=== PATIENT | female | born 1990 | race Caucasian/White ===

== ENCOUNTER 2016-08-29 01:03 | Emergency (ER) | payer SELFPAY ==
[2016-08-29 01:16] VITALS: BP 124/99; BMI 28.8
[2016-08-29 01:39] LABS: BASOPHILS # (AUTO) 0.1 X10^3/uL (0.0-0.1); BASOPHILS % (AUTO) 0.6 % (0.2-1.0); HEMATOCRIT 40.2 % (36.0-47.0); HEMOGLOBIN 13.8 g/dL (12.0-16.0); LYMPHOCYTES # (AUTO) 2.3 X10^3/uL (1.3-2.9); LYMPHOCYTES % (AUTO) 19.5 % (21.0-51.0); MEAN CORPUSCULAR HEMOGLOBIN 29.8 pg (27.0-34.0); MEAN CORPUSCULAR HGB CONC 34.2 g/dL (33.0-35.0); MEAN CORPUSCULAR VOLUME 87.1 fL (80.0-100.0); MEAN PLATELET VOLUME 8.3 fL (7.4-11.0); MONOCYTES # (AUTO) 1.1 x10^3/uL (0.3-0.8); MONOCYTES % (AUTO) 8.9 % (0.0-13.0); NEUTROPHILS # (AUTO) 8.5 x10^3/uL (2.2-4.8); PLATELET COUNT 243 X10^3/uL (150.0-450.0); RED BLOOD COUNT 4.62 X10^6/uL (3.5-5.4)
[2016-08-29 01:43] LABS: BILIRUBIN,URINE 2+ (NEGATIVE); BLOOD/HEMOGLOBIN,URINE 1+ (NEGATIVE); GLUCOSE, URINE NEGATIVE (NEGATIVE); KETONES,URINE 1+ (NEGATIVE); LEUKOCYTE ESTERASE ,URINE 1+ (NEGATIVE); NITRITES,URINE NEGATIVE (NEGATIVE); PROTEIN,URINE 2+ (NEGATIVE); UROBILINOGEN,URINE 2+ (NORMAL)
--- NOTE | 2016-08-29 01:49 | DR.GENAD ---
HPI - PCP Primary Care Physician: NFD - Complaint/Symptoms Chief Complaint Doctors Comments: I agree with statement. Patient is non homocidal and non suicidal Chief Complaint:: PT STATES" YEA I DID SOME DRUGS BUT I DON'T NEED ANY HELP I DON'T WANT TOO HURT MYSELF OR ANYONE ELSE. PEOPLE JUST NEED TOO LEAVE ME ALONE I KEEP TOO MYSELF AND WALK THE STREETS WHATS WRONG WITH THAT I SMOKED METH TONIGHT " - Source History Provided: Patient - Mode of Arrival Mode of Arrival: EMS - Timing Onset of Chief Complaint: 08/29/16 PMH - PMH Past Medical History: Yes Past Medical History: Anemia, Schizophrenia Past Medical History Comment: DRUG USE Past Surgical History: Yes Surgical History: - Family History History of Family Medical Conditions: Yes Family Medical History: Diabetes Mellitus, Hypertension - Social History Have you used tobacco products in the last 12 months: Yes Type of Tobacco Use: Cigarettes Alcohol Use: Occasionally Do you use any recreational Drugs:: Yes (METH AND CRACK) Lives With: Other Lives Where: Homeless - infectious screening In the last 2 months have you had wt loss of >10#?: NO Have you had fever, night sweats or hemotysis?: No Have you traveled outside the country in the last 6 months?: No Isolation: Standard ROS - Review of Systems Eyes: No Symptoms Reported ENTM: No Symptoms Reported Respiratoy: No Symptoms Reported Cardiovascular: No Symptoms Reported Gastrointestinal/Abdominal: No Symptoms Reported Genitourinary: No Symptoms Reported Neurological: No Symptoms Reported Musculoskeletal: No Symptoms Reported Integumentary: No Symptoms Reported Hematologic/Lymphatic: No Symptoms Reported Endocrine: No Symptoms Reported Psychiatric: No Symptoms Reported All Other Systems: Reviewed and Negative PE - Vital Signs Vitals: Temperature 98.8 F Pulse Rate 119 Respiratory Rate 22 Blood Pressure [Left Arm] 130/72 Blood Pressure 124/99 O2 Sat by Pulse Oximetry 100 - General Limitations: No Limitations General Appearance: Alert, In No Apparent Distress - Head Head Exam: Normal Inspection, Atraumatic - Eyes Eye exam: Normal Appearance, PERRL - ENT ENT Exam: Normal Exam External Ear Exam: Normal External Inspection TM/Canal Exam: Bilateral Normal Nose Exam: Normal Nose Exam Mouth Exam: Normal Inspection Throat Exam: Normal Inspection - Neck Neck Exam: Normal Inspection - Chest Chest Inspection: Normal Inspection - Respiratory Respiratory Exam: Normal Lung Sounds Bilat Respiratory Exam: Bilateral Clear to Auscultation - Cardiovascular Cardiovascular Exam: Tachycardia - Abdominal Exam Abdominal Exam: Normal Inspection Abdominal Tenderness: negative: RUQ, RLQ, LUQ, LLQ, Epigastrium, Suprapubic, Diffuse, Mild, Moderate, Severe, Other - Extremities Extremities Exam: Normal Inspection - Back Back Exam: Normal Inspection - Neurologic Neurological Exam: Alert, Oriented X3, CN II-XII Intact - Psychiatric Psychiatric Exam: Normal Affect - Skin Skin Exam: Warm, Dry, Intact Course - Reevaluation 1st: Improved ROR - Labs Reviewed Laboratory Results Reviewed?: Yes (urine: meth,cocaine, THC) Result Diagrams: 08/29/16 01:30 08/29/16 01:30 Laboratory: WBC 12.0 X10^3/uL (3.6-10.0) H 08/29/16 01:30 RBC 4.62 X10^6/uL (3.5-5.4) 08/29/16 01:30 Hgb 13.8 g/dL (12.0-16.0) 08/29/16 01:30 Hct 40.2 % (36.0-47.0) 08/29/16 01:30 MCV 87.1 fL (80.0-100.0) 08/29/16 01:30 MCH 29.8 pg (27.0-34.0) 08/29/16 01:30 MCHC 34.2 g/dL (33.0-35.0) 08/29/16 01:30 RDW 13.0 % (11.6-16.5) 08/29/16 01:30 Plt Count 243 X10^3/uL (150.0-450.0) 08/29/16 01:30 MPV 8.3 fL (7.4-11.0) 08/29/16 01:30 Neut % 71.0 % (42.0-75.0) 08/29/16 01:30 Lymph % 19.5 % (21.0-51.0) L 08/29/16 01:30 Collin % 8.9 % (0.0-13.0) 08/29/16 01:30 Eos % 0.0 % (0.9-2.9) L 08/29/16 01:30 Baso % 0.6 % (0.2-1.0) 08/29/16 01:30 Neut # 8.5 x10^3/uL (2.2-4.8) H 08/29/16 01:30 Lymph # 2.3 X10^3/uL (1.3-2.9) 08/29/16 01:30 Collin # 1.1 x10^3/uL (0.3-0.8) H 08/29/16 01:30 Eos # 0.0 x10^3/uL (0.0-0.2) 08/29/16 01:30 Baso # 0.1 X10^3/uL (0.0-0.1) 08/29/16 01:30 Absolute Nucleated RBC 0.0 /100WBC 08/29/16 01:30 Sodium 141 mmol/L (136-145) 08/29/16 01:30 Corrected Sodium 142 mmol/L (136-145) 08/29/16 01:30 Potassium 3.6 mmol/L (3.5-5.1) 08/29/16 01:30 Chloride 102 mmol/L (98-107) 08/29/16 01:30 Carbon Dioxide 27.3 mmol/L (21-32) 08/29/16 01:30 BUN 24 mg/dL (7-18) H 08/29/16 01:30 Creatinine 1.88 mg/dL (0.55-1.02) H 08/29/16 01:30 Est GFR (MDRD) Af Amer 42 (>60) L 08/29/16 01:30 Est GFR (MDRD) Non-Af 35 (>60) L 08/29/16 01:30 Glucose 139 mg/dL (65-99) H 08/29/16 01:30 Calcium 8.9 mg/dL (8.5-10.1) 08/29/16 01:30 Corrected Calcium TNP 08/29/16 01:30 Total Bilirubin 1.10 mg/dL (0.2-1.0) H 08/29/16 01:30 AST 52 Units/L (15-37) H 08/29/16 01:30 ALT 44 Units/L (12-78) 08/29/16 01:30 Alkaline Phosphatase 82 Units/L (46-116) 08/29/16 01:30 Total Protein 8.5 g/dL (6.4-8.2) H 08/29/16 01:30 Albumin 4.2 g/dL (3.4-5.0) 08/29/16 01:30 Globulin 4.3 g/dL (2.5-4.5) 08/29/16 01:30 Albumin/Globulin Ratio 1.0 Ratio (1.1-2.1) L 08/29/16 01:30 HCG, Qual Negative <10 mIU/mL 08/29/16 01:30 Specimen Type Clean catch urine 08/29/16 01:22 Urine Color Yellow (YELLOW) 08/29/16 01: Urine Appearance Cloudy (CLEAR) 08/29/16 01: Urine pH 5.0 (5.0 - 8.0) 08/29/16 01:22 Ur Specific [place] 1.030 (1.000-1.030) 08/29/16 01:22 Urine Protein 2+ (NEGATIVE) 08/29/16 01:22 Urine Glucose (UA) Negative (NEGATIVE) 08/29/16 01: Urine Ketones 1+ (NEGATIVE) 08/29/16 01:22 Urine Occult Blood 1+ (NEGATIVE) 08/29/16 01: Urine Nitrite Negative (NEGATIVE) 08/29/16 01: Urine Bilirubin 2+ (NEGATIVE) 08/29/16 01:22 Urine Urobilinogen 2+ (NORMAL) 08/29/16 01:22 Ur Leukocyte Esterase 1+ (NEGATIVE) 08/29/16 01:22 Urine RBC 3-5 /HPF (NEGATIVE) 08/29/16 01:22 Urine WBC 8-10 /HPF (NEGATIVE) 08/29/16 01:22 Ur Squamous Epith Cells Few /HPF (NEGATIVE) 08/29/16 01:22 Calcium Oxalate Crystal Moderate /HPF (NEGATIVE) 08/29/16 01:22 Urine Bacteria 2+ /HPF (NEGATIVE) 08/29/16 01:22 Hyaline Casts Moderate /LPF (NEGATIVE) 08/29/16 01:22 Urine Mucus Moderate /HPF (NEGATIVE) 08/29/16 01:22 Ur Culture Indicated? Yes/culture set up 08/29/16 01:22 Salicylates < 2.8 mg/dL (2.8-20) L 08/29/16 01:30 Urine Opiates Screen Negative (NEG=<300) 08/29/16 01:22 Urine Methadone Screen Negative (NEG=<300) 08/29/16 01:22 Acetaminophen 0.0 ug/mL (10-30) L 08/29/16 01:30 Ur Barbiturates Screen Negative (NEG=<200) 08/29/16 01:22 Ur Phencyclidine Scrn Negative (NEG=<25) 08/29/16 01:22 Ur Amphetamines Screen Positive (NEG=<1000) A 08/29/16 01:22 U Benzodiazepines Scrn Negative (NEG=<200) 08/29/16 01:22 Urine Cocaine Screen Positive (NEG=<300) A 08/29/16 01:22 U Marijuana (THC) Screen Positive (NEG=<50) A 08/29/16 01:22 Ethyl Alcohol mg/dL < 3 mg/dL (0-19.9) 08/29/16 01:30 - Diagnosis Discharge Problem: Substance abuse or dependence, Illicit drug use - Discharge Plan Condition: Stable - Follow ups/Referrals Follow ups/Referrals: NFD,None [Primary Care Provider] - 3 days - Instructions Instructions: Stimulant Use Disorder-Amphetamines, Substance Use Disorder, Finding Treatment for Addiction, Stimulant Use Disorder-Methamphetamines
[2016-08-29 01:50] LABS: ALANINE AMINOTRANSFERASE 44 Units/L (12-78); ALBUMIN 4.2 g/dL (3.4-5.0); ALKALINE PHOSPHATASE 82 Units/L (46-116); ASPARTATE AMINO TRANSFERASE 52 Units/L (15-37); BLOOD ALCOHOL < 3 mg/dL (0-19.9); BLOOD UREA NITROGEN 24 mg/dL (7-18); CALCIUM 8.9 mg/dL (8.5-10.1); CARBON DIOXIDE 27.3 mmol/L (21-32); CHLORIDE 102 mmol/L (98-107); COR NA(FOR HYPERGLY) 142 mmol/L (136-145); CREATININE 1.88 mg/dL (0.55-1.02); GLUCOSE 139 mg/dL (65-99); SODIUM 141 mmol/L (136-145); TOTAL PROTEIN 8.5 g/dL (6.4-8.2); eGFR BLACK RACES 42 (>60); eGFR NON BLACK RACES 35 (>60)
[2016-08-29 01:50] LABS: APPEARANCE,URINE CLOUDY (CLEAR); BACTERIA,URINE 2+ /HPF (NEGATIVE); CALCIUM OXALATE CRYSTALS,UR MODERATE /HPF (NEGATIVE); COLOR,URINE YELLOW (YELLOW); HYALINE CASTS, URINE MODERATE /LPF (NEGATIVE); MUCUS,URINE MODERATE /HPF (NEGATIVE); SQUAMOUS EPITHELIAL CELL,UR FEW /HPF (NEGATIVE)
[2016-08-29 01:52] LABS: SERUM PREGNANCY TEST, QUAL NEGATIVE <10 mIU/mL
[2016-08-29 01:53] LABS: SALICYLATE < 2.8 mg/dL (2.8-20)
== END 2016-08-29 06:28 | disposition home or self-care (01) ==
LOC: ER 01:03
DX: F15.10 Other stimulant abuse, uncomplicated (principal); F12.90 Cannabis use, unspecified, uncomplicated
CPT/HCPCS: 36415; 80053; 80307; 80320; 81001; 84703; 85025; 87086; 93005; 93010; 99281; 99283; G0434; G6038; G6039; G6040

== ENCOUNTER 2018-08-17 06:00 | Inpatient (IN) ==
[2018-08-17] MEDS ORDERED: ANCEF 1 GRAM IV PREMIX* 1 G/50 ML BAG IV ONE (06:30)
[2018-08-17] MEDS ORDERED: LR 1000 ML IV 1,000 ML ONE ×3 (06:31→08:03)
[2018-08-17] MEDS ORDERED: D5 1/2 NS 1000 ML 1,000 ML IV SCH (06:58)
[2018-08-17] MEDS ORDERED: ANCEF VIAL 1 GRAM IVP ONE (06:58)
[2018-08-17] MEDS ORDERED: FENTANYL INJ 100 mcg ONE (07:24)
[2018-08-17] MEDS ORDERED: DILAUDID INJ ONE (07:24)
[2018-08-17] MEDS ORDERED: MARCAINE SPINAL ONE (07:25)
[2018-08-17] MEDS ORDERED: MARCAINE 0.25% INJ ONE (07:25)
[2018-08-17] MEDS ORDERED: D5 1/2 NS 1L W PITOCIN 20 UNITS/L 20 UNITS/1,000 ML BAG IV ONE (07:37)
[2018-08-17 08:38] LABS: BILIRUBIN,URINE NEGATIVE (NEGATIVE); BLOOD/HEMOGLOBIN,URINE NEGATIVE (NEGATIVE); GLUCOSE, URINE NEGATIVE (NEGATIVE); KETONES,URINE NEGATIVE (NEGATIVE); LEUKOCYTE ESTERASE ,URINE NEGATIVE (NEGATIVE); NITRITES,URINE NEGATIVE (NEGATIVE); PROTEIN,URINE NEGATIVE (NEGATIVE); UROBILINOGEN,URINE NORMAL (NORMAL)
[2018-08-17 08:45] LABS: APPEARANCE,URINE CLEAR (CLEAR); COLOR,URINE YELLOW (YELLOW)
[2018-08-17] MEDS ORDERED: DIPRIVAN VIAL 20 ML ONE (08:49)
[2018-08-17] MEDS ORDERED: VERSED ONE (09:08)
[2018-08-17] MEDS ORDERED: BENADRYL INJ 50 MG VIAL IVP PRN (09:11)
[2018-08-17] MEDS ORDERED: PHENERGAN INJ 25 MG IM PRN (09:11)
[2018-08-17] MEDS ORDERED: REGLAN INJ 10 MG VIAL IVP PRN ×2 (09:11→09:37)
[2018-08-17] MEDS ORDERED: DILAUDID INJ IVP PRN (09:11)
[2018-08-17] MEDS ORDERED: ZOFRAN INJ 4 MG VIAL IVP PRN ×2 (09:11→09:37)
[2018-08-17] MEDS ORDERED: HYPERRHO S/D (or RHOGAM) IM PRN (09:37)
[2018-08-17] MEDS ORDERED: NARCAN INJ IVP PRN (09:37)
[2018-08-17] MEDS ORDERED: PERCOCET TAB 5/325 MG PO PRN (09:37)
[2018-08-17] MEDS ORDERED: MYLICON TAB 80 MG CHEW PO PRN (09:37)
[2018-08-17] MEDS ORDERED: ADACEL or BOOSTRIX TDaP VACCINE IM ONE ×2 (09:37→14:31)
[2018-08-17] MEDS ORDERED: D5 1/2 NS 1000 ML 1,000 ML with PITOCIN 20 UNITS IV SCH ×2 (10:00)
[2018-08-17] MEDS: XANAX PO PRN ×2 (10:31→22:41)
[2018-08-17] MEDS: BENADRYL INJ 50 MG VIAL IVP PRN ×2 (10:31→14:52)
[2018-08-17] MEDS: TORADOL 30 MG VIAL IVP PRN ×2 (12:56→22:40)
[2018-08-17] MEDS ORDERED: PITOCIN ONE (15:16)
[2018-08-17] MEDS ORDERED: EPHEDRINE SULFATE INJ ONE (15:16)
[2018-08-17] MEDS ORDERED: XYLOCAINE 1 % (PLAIN) ONE (15:16)
[2018-08-17] MEDS ORDERED: DIPRIVAN VIAL ONE (15:16)
[2018-08-17] MEDS: ZANTAC PO SCH (20:49)
[2018-08-18 05:17] LABS: HEMATOCRIT 27.9 % (36.0-47.0)
[2018-08-18 05:30] LABS: HEMOGLOBIN 9.6 g/dL (12.0-16.0)
[2018-08-18] MEDS: COLACE CAP 100 MG PO SCH ×2 (09:12→20:40)
[2018-08-18] MEDS: ZANTAC PO SCH ×2 (09:12→20:40)
[2018-08-18] MEDS: MOTRIN TAB 800 MG PO PRN ×2 (09:13→19:30)
[2018-08-18] MEDS: PRENATAL PLUS PO SCH (09:13)
[2018-08-18] MEDS: CELEXA PO SCH (09:13)
[2018-08-18] MEDS: XANAX PO PRN ×2 (11:36→22:06)
[2018-08-18] MEDS: PERCOCET TAB 5/325 MG PO PRN ×2 (11:36→22:00)
[2018-08-18] MEDS: BACTROBAN CREAM TOP SCH ×2 (14:45→22:04)
[2018-08-18] MEDS: FERROUS GLUCONATE PO SCH (14:55)
[2018-08-19] MEDS: BACTROBAN CREAM TOP SCH (05:13)
[2018-08-19] MEDS: PERCOCET TAB 5/325 MG PO PRN (05:15)
[2018-08-19] MEDS: FERROUS GLUCONATE PO SCH (06:02)
[2018-08-19 08:16] VITALS: BP 85/60
[2018-08-19] MEDS: COLACE CAP 100 MG PO SCH (08:48)
[2018-08-19] MEDS: CELEXA PO SCH (08:48)
[2018-08-19] MEDS: ZANTAC PO SCH (08:48)
[2018-08-19] MEDS: PRENATAL PLUS PO SCH (08:48)
[2018-08-19] MEDS: MOTRIN TAB 800 MG PO PRN (08:57)
[2018-08-19] MEDS: XANAX PO PRN (09:40)
== END 2018-08-19 11:20 | disposition home or self-care (01) | DRG 784 ==
LOC: LD 06:00 → MED/SURG 09:53
PROVIDERS: ADMIT Specialist; ATTEND Specialist
DX: N85.8 Other specified noninflammatory disorders of uterus; Z37.0 Single live birth; O34.212 Maternal care for vertical scar from previous cesarean delivery; D50.8 Other iron deficiency anemias; O36.0930 Maternal care for other rhesus isoimmunization, third trimester, not applicable or unspecified; O99.02 Anemia complicating childbirth; Z3A.38 38 weeks gestation of pregnancy
CPT/HCPCS: 36415; 80307; 81003; 85014; 85018; 90715; A4216; A4222; S0020; S0197; G0434; J0690; J1170; J1200; J1885; J2250; J2310; J2590; J2704; J2790; J3010; J3490; J7120